=== PATIENT | female | born 1995 | race Two or more races ===

== ENCOUNTER 2021-09-10 09:25 | Outpatient (CLI) | payer OTHER | END 2021-09-10 09:33 | disposition home or self-care (01) | LOC: RX STUDY 09:25 | PROVIDERS: ATTEND Obstetrics & Gynecology | DX: R10.2 Pelvic and perineal pain (principal); N91.2 Amenorrhea, unspecified ==

== ENCOUNTER 2022-04-05 05:03 | Day surgery (SDC) | payer OTHER | END 2022-04-05 14:35 | disposition home or self-care (01) | LOC: CIR.AMB 05:03 | PROVIDERS: ATTEND Obstetrics & Gynecology | DX: N84.0 Polyp of corpus uteri (principal); Z20.822 Contact with and (suspected) exposure to COVID-19; Z91.013 Allergy to seafood; J45.909 Unspecified asthma, uncomplicated ==

== ENCOUNTER 2022-05-14 18:06 | Emergency (ER) | payer OTHER ==
[~2022-05-14] VITALS: Ht 170.2 cm; Wt 56.7 kg
== END 2022-05-14 21:33 | disposition home or self-care (01) ==
LOC: ER 18:06
DX: O20.9 Hemorrhage in early pregnancy, unspecified (principal); Z3A.01 Less than 8 weeks gestation of pregnancy; Z91.013 Allergy to seafood

== ENCOUNTER 2022-07-09 11:45 | Emergency (ER) | payer OTHER ==
[~2022-07-09] VITALS: Ht 170.2 cm; Wt 57.6 kg
== END 2022-07-09 20:01 | disposition home or self-care (01) ==
LOC: ER 11:45
DX: O46.91 Antepartum hemorrhage, unspecified, first trimester (principal); Z3A.12 12 weeks gestation of pregnancy

== ENCOUNTER 2022-08-18 12:01 | Emergency (ER) | payer OTHER ==
[~2022-08-18] VITALS: Ht 170.2 cm; Wt 59.4 kg
== END 2022-08-18 14:58 | disposition home or self-care (01) ==
LOC: ER 12:01
DX: O26.892 Other specified pregnancy related conditions, second trimester (principal); Z3A.18 18 weeks gestation of pregnancy; M54.2 Cervicalgia; Z91.013 Allergy to seafood

== ENCOUNTER 2022-09-01 13:16 | Outpatient (CLI) | payer OTHER | END 2022-09-01 14:50 | disposition home or self-care (01) | LOC: PRENATAL 13:16 | PROVIDERS: ATTEND Obstetrics & Gynecology Maternal & Fetal Medicine | DX: O35.9XX0 Maternal care for (suspected) fetal abnormality and damage, unspecified, not applicable or unspecified (principal); O35.3XX0 Maternal care for (suspected) damage to fetus from viral disease in mother, not applicable or unspecified; Z14.8 Genetic carrier of other disease; O26.839 Pregnancy related renal disease, unspecified trimester; O44.00 Complete placenta previa NOS or without hemorrhage, unspecified trimester; Z3A.20 20 weeks gestation of pregnancy ==

== ENCOUNTER 2022-09-08 14:33 | Inpatient (IN) | payer OTHER ==
[~2022-09-08] VITALS: Ht 170.2 cm; Wt 61.2 kg
[2022-09-08] MEDS ORDERED: PRENATAL TABLE1 EAC1 PO (15:04)
== END 2022-09-10 11:54 | disposition home or self-care (01) | DRG 805 ==
LOC: OBS/DEL 14:33 → LDR 19:01 → OBS/DEL 19:01 → LDR 09-09 15:49 → OB/GYN 09-10 02:13
PROVIDERS: ADMIT Obstetrics & Gynecology; ATTEND Obstetrics & Gynecology
PROC: 4A1HXCZ Monitoring of Products of Conception, Cardiac Rate, External Approach (ICD-10-PCS; 2022-09-08)
PROC: BY4CZZZ Ultrasonography of Second Trimester, Single Fetus (ICD-10-PCS; 2022-09-08)
PROC: BU4CZZZ Ultrasonography of Uterus and Ovaries (ICD-10-PCS; 2022-09-08)
PROC: 10E0XZZ Delivery of Products of Conception, External Approach (ICD-10-PCS; principal; 2022-09-09)
PROC: BY4CZZZ Ultrasonography of Second Trimester, Single Fetus (ICD-10-PCS; 2022-09-09)
PROC: BU4CZZZ Ultrasonography of Uterus and Ovaries (ICD-10-PCS; 2022-09-09)
PROC: 3E0P7VZ Introduction of Hormone into Female Reproductive, Via Natural or Artificial Opening (ICD-10-PCS; 2022-09-09)
PROC: 3E0DXGC Introduction of Other Therapeutic Substance into Mouth and Pharynx, External Approach (ICD-10-PCS; 2022-09-09)
DX: O32.1XX0 Maternal care for breech presentation, not applicable or unspecified (principal); O34.32 Maternal care for cervical incompetence, second trimester; Z37.1 Single stillbirth; O26.872 Cervical shortening, second trimester; O26.842 Uterine size-date discrepancy, second trimester; Z3A.21 21 weeks gestation of pregnancy; Z20.822 Contact with and (suspected) exposure to COVID-19

== ENCOUNTER 2023-01-04 11:51 | Emergency (ER) | payer OTHER ==
[~2023-01-04] VITALS: Ht 170.2 cm; Wt 57.2 kg
[~2023-01-04 11:51] MED LIST: PRENATAL TABLE1 EAC1 PO
[2023-01-04] MEDS ORDERED: BUSPIRONE HCL7.5 MG (12:59)
== END 2023-01-04 14:31 | disposition home or self-care (01) ==
LOC: ER 11:51
DX: R51.9 Headache, unspecified (principal)

== ENCOUNTER 2023-03-27 15:47 | Emergency (ER) | payer OTHER ==
[~2023-03-27] VITALS: Ht 170.2 cm; Wt 55.8 kg
[~2023-03-27 15:47] MED LIST changes: +BUSPIRONE HCL7.5 MG
[2023-03-27] MEDS ORDERED: PROMETRIUM200 MG PO (16:34)
[2023-03-27 17:21] LABS: HEMATOCRIT 32.6 % (36.0-45.00); MEAN CELL VOLUME 81.3 fL (80.00-100.00); MEAN CORPUSCULAR HEMOGLOBIN 27.5 pg (27.00-32.0); MEAN CORPUSCULAR HGB CONC 33.8 g/dl (32.0-36.0); PLATELET COUNT 200 K/uL (150-450); RED BLOOD COUNT 4.01 M/uL (4.00-6.00); RED CELL DISTRIBUTION WIDTH 16.7 % (11.5-14.5)
[2023-03-27 17:41] LABS: CALCIUM 8.9 mg/dL (8.5-10.1); CREATININE SERUM 0.67 mg/dL (0.55-1.02); GFR 106.39; POTASSIUM 3.8 mEq/L (3.5-5.1)
[2023-03-27 19:38] LABS: PH,URINE 6.5 (5.0-8.0); URINE APPEARANCE Cloudy; URINE BILIRRUBIN Negative (NEGATIVE); URINE BLOOD Negative; URINE COLOR Yellow; URINE GLUCOSE Negative (NEGATIVE); URINE LEUKOCYTE Negative; URINE NITRATE Negative; URINE PROTEIN Negative (NEGATIVE)
[2023-03-27 19:44] LABS: URINE BACTERIA 2019.5 uL (0.0-1933); URINE RBC 56.1 uL (0.0-20.8); URINE WBC 8.8 uL (0.0-23.2)
[2023-03-27 20:08] LABS: URINE CRYSTALS MODERATE /HPF
== END 2023-03-27 22:02 | disposition home or self-care (01) ==
LOC: ER 15:47
PROVIDERS: Emergency Medicine
DX: O21.9 Vomiting of pregnancy, unspecified (principal); Z3A.09 9 weeks gestation of pregnancy

== ENCOUNTER 2023-04-11 08:51 | Outpatient (CLI) | payer OTHER ==
[~2023-04-11 08:51] MED LIST changes: +PROMETRIUM200 MG PO
== END 2023-04-11 08:52 | disposition home or self-care (01) ==
LOC: PRENATAL 08:51
PROVIDERS: ATTEND Obstetrics & Gynecology Maternal & Fetal Medicine
DX: O36.80X0 Pregnancy with inconclusive fetal viability, not applicable or unspecified (principal); Z36.82 Encounter for antenatal screening for nuchal translucency; Z36.9 Encounter for antenatal screening, unspecified; O34.30 Maternal care for cervical incompetence, unspecified trimester; Z3A.11 11 weeks gestation of pregnancy

== ENCOUNTER 2023-04-14 10:13 | Outpatient (CLI) | payer OTHER | END 2023-04-14 10:56 | disposition home or self-care (01) | LOC: PRENATAL 10:13 | PROVIDERS: ATTEND Obstetrics & Gynecology Maternal & Fetal Medicine | DX: O36.80X0 Pregnancy with inconclusive fetal viability, not applicable or unspecified (principal); O34.30 Maternal care for cervical incompetence, unspecified trimester; O26.859 Spotting complicating pregnancy, unspecified trimester; Z3A.11 11 weeks gestation of pregnancy ==

== ENCOUNTER 2023-04-26 09:38 | Day surgery (SDC) | payer OTHER ==
[2023-04-20 11:20] LABS: HEMATOCRIT 33.7 % (36.0-45.00); HEMOGLOBIN 11.4 g/dL (12.0-15.00); MEAN CELL VOLUME 81.5 fL (80.00-100.00); MEAN CORPUSCULAR HEMOGLOBIN 27.4 pg (27.00-32.0); MEAN CORPUSCULAR HGB CONC 33.7 g/dl (32.0-36.0); PLATELET COUNT 197 K/uL (150-450); RED BLOOD COUNT 4.14 M/uL (4.00-6.00); RED CELL DISTRIBUTION WIDTH 15.6 % (11.5-14.5)
[2023-04-20 11:26] LABS: INR 0.99; PARTIAL THROMBOPLASTIN TIME 29.1 SECONDS (22.0-34.0); PROTHROMBIN TIME 10.4 SECONDS (9.0-11.5)
[~2023-04-26 09:38] MED LIST changes: +FOLIC ACID0.8 M1 PO
== END 2023-04-26 20:30 | disposition home or self-care (01) ==
LOC: CIR.AMB 09:38
PROVIDERS: ATTEND Obstetrics & Gynecology Maternal & Fetal Medicine
DX: O34.31 Maternal care for cervical incompetence, first trimester (principal); Z3A.12 12 weeks gestation of pregnancy; Z91.013 Allergy to seafood; Z20.822 Contact with and (suspected) exposure to COVID-19

== ENCOUNTER 2023-05-18 21:54 | Emergency (ER) | payer OTHER ==
[~2023-05-18] VITALS: Ht 170.2 cm; Wt 56.7 kg
[2023-05-19 00:01] LABS: HEMATOCRIT 29.6 % (36.0-45.00); HEMOGLOBIN 10.3 g/dL (12.0-15.00); MEAN CELL VOLUME 82.7 fL (80.00-100.00); MEAN CORPUSCULAR HEMOGLOBIN 28.8 pg (27.00-32.0); MEAN CORPUSCULAR HGB CONC 34.9 g/dl (32.0-36.0); PLATELET COUNT 207 K/uL (150-450); RED BLOOD COUNT 3.59 M/uL (4.00-6.00); RED CELL DISTRIBUTION WIDTH 15.3 % (11.5-14.5)
[2023-05-19 00:20] LABS: INR 0.96; PARTIAL THROMBOPLASTIN TIME 28.4 SECONDS (22.0-34.0); PROTHROMBIN TIME 10.1 SECONDS (9.0-11.5)
[2023-05-19 00:21] LABS: CALCIUM 8.8 mg/dL (8.5-10.1); CREATININE SERUM 0.62 mg/dL (0.55-1.02); GFR 116.35; POTASSIUM 3.25 mEq/L (3.5-5.1)
[2023-05-19 02:51] LABS: PH,URINE 7.5 (5.0-8.0); URINE APPEARANCE Clear; URINE BILIRRUBIN Negative (NEGATIVE); URINE BLOOD Negative; URINE COLOR Yellow; URINE GLUCOSE Negative (NEGATIVE); URINE LEUKOCYTE Negative; URINE NITRATE Negative; URINE PROTEIN Negative (NEGATIVE); URINE UROBILINOGEN 0.2 E.U./dl
[2023-05-19 02:55] LABS: URINE BACTERIA 298.3 uL (0.0-1933); URINE EPITHELIAL CELLS 3.2 uL (0.0-38.8); URINE WBC 3.7 uL (0.0-23.2)
[2023-05-19 02:58] LABS: URINE RBC 1.1 uL (0.0-20.8)
== END 2023-05-19 05:46 ==
LOC: ER 21:55
PROVIDERS: General Practice
DX: O26.892 Other specified pregnancy related conditions, second trimester (principal); Z3A.16 16 weeks gestation of pregnancy; R10.2 Pelvic and perineal pain; Z91.013 Allergy to seafood

== ENCOUNTER 2023-05-19 13:34 | Outpatient (CLI) | payer OTHER | END 2023-05-19 13:35 | disposition home or self-care (01) | LOC: PRENATAL 13:34 | PROVIDERS: ATTEND Obstetrics & Gynecology Maternal & Fetal Medicine | DX: O26.849 Uterine size-date discrepancy, unspecified trimester (principal); O34.30 Maternal care for cervical incompetence, unspecified trimester; Z3A.16 16 weeks gestation of pregnancy ==

== ENCOUNTER 2023-06-16 09:17 | Outpatient (CLI) | payer OTHER | END 2023-06-16 09:18 | disposition home or self-care (01) | LOC: PRENATAL 09:17 | PROVIDERS: ATTEND Obstetrics & Gynecology Maternal & Fetal Medicine | DX: O35.3XX0 Maternal care for (suspected) damage to fetus from viral disease in mother, not applicable or unspecified (principal); O44.00 Complete placenta previa NOS or without hemorrhage, unspecified trimester; O34.30 Maternal care for cervical incompetence, unspecified trimester; Z3A.20 20 weeks gestation of pregnancy ==

== ENCOUNTER 2023-06-19 14:29 | Inpatient (IN) | payer OTHER ==
[~2023-06-19] VITALS: Ht 170.2 cm; Wt 59.0 kg
[2023-06-19] MEDS ORDERED: PRENA1 CHEW TA1.4 MG PO (14:32)
== END 2023-06-23 18:21 | disposition home or self-care (01) | DRG 831 ==
LOC: LDR 14:29 → OB/GYN 14:29
PROVIDERS: ADMIT Obstetrics & Gynecology; ATTEND Obstetrics & Gynecology
PROC: 4A1HXCZ Monitoring of Products of Conception, Cardiac Rate, External Approach (ICD-10-PCS; principal; 2023-06-19)
PROC: BY4CZZZ Ultrasonography of Second Trimester, Single Fetus (ICD-10-PCS; 2023-06-21)
PROC: BU4CZZZ Ultrasonography of Uterus and Ovaries (ICD-10-PCS; 2023-06-21)
DX: O23.42 Unspecified infection of urinary tract in pregnancy, second trimester (principal); O34.32 Maternal care for cervical incompetence, second trimester; Z3A.21 21 weeks gestation of pregnancy; Z20.822 Contact with and (suspected) exposure to COVID-19; O26.842 Uterine size-date discrepancy, second trimester

== ENCOUNTER 2023-07-07 11:53 | Outpatient (CLI) | payer OTHER ==
[~2023-07-07] VITALS: Ht 170.2 cm; Wt 60.3 kg
[~2023-07-07 11:53] MED LIST changes: +PRENA1 CHEW TA1.4 MG PO
[2023-07-07 13:53] LABS: PH,URINE 6.5 (5.0-8.0); URINE APPEARANCE Clear; URINE BILIRRUBIN Negative (NEGATIVE); URINE BLOOD Negative; URINE COLOR Yellow; URINE GLUCOSE Negative (NEGATIVE); URINE LEUKOCYTE Negative; URINE NITRATE Negative; URINE PROTEIN Negative (NEGATIVE)
[2023-07-07 13:55] LABS: URINE BACTERIA 1006.7 uL (0.0-1933); URINE EPITHELIAL CELLS 12.5 uL (0.0-38.8); URINE RBC 40.5 uL (0.0-20.8); URINE WBC 8.8 uL (0.0-23.2)
== END 2023-07-08 16:38 | disposition home or self-care (01) ==
LOC: OBS/DEL 11:53
PROVIDERS: ATTEND Obstetrics & Gynecology
DX: O60.02 Preterm labor without delivery, second trimester (principal); O34.32 Maternal care for cervical incompetence, second trimester; Z3A.23 23 weeks gestation of pregnancy; Z91.013 Allergy to seafood; O26.852 Spotting complicating pregnancy, second trimester; O26.842 Uterine size-date discrepancy, second trimester

== ENCOUNTER 2023-08-10 09:47 | Outpatient (CLI) | payer OTHER | END 2023-08-10 09:48 | disposition home or self-care (01) | LOC: PRENATAL 09:47 | PROVIDERS: ATTEND Obstetrics & Gynecology Maternal & Fetal Medicine | DX: O26.849 Uterine size-date discrepancy, unspecified trimester (principal); O34.30 Maternal care for cervical incompetence, unspecified trimester; Z3A.28 28 weeks gestation of pregnancy ==

== ENCOUNTER 2023-09-11 02:24 | Outpatient (CLI) | payer OTHER ==
[~2023-09-11] VITALS: Ht 170.2 cm; Wt 68.0 kg
[2023-09-11] MEDS ORDERED: TAMSULOSIN HCL 0.4 MG CAP PO SCH (10:43)
== END 2023-09-11 11:53 | disposition home or self-care (01) ==
LOC: OBS/DEL 02:24
PROVIDERS: ATTEND Obstetrics & Gynecology
DX: O34.33 Maternal care for cervical incompetence, third trimester (principal); O36.8130 Decreased fetal movements, third trimester, not applicable or unspecified; Z3A.32 32 weeks gestation of pregnancy

== ENCOUNTER → 2023-09-21 15:41 | Outpatient (CLI) | payer OTHER | END | disposition home or self-care (01) | LOC: PRENATAL 15:41 | PROVIDERS: ATTEND Obstetrics & Gynecology Maternal & Fetal Medicine | DX: O26.849 Uterine size-date discrepancy, unspecified trimester (principal); O99.019 Anemia complicating pregnancy, unspecified trimester; O36.8199 Decreased fetal movements, unspecified trimester, other fetus; Z3A.34 34 weeks gestation of pregnancy ==

== ENCOUNTER 2023-09-26 13:19 | Outpatient (CLI) | payer OTHER | END 2023-09-26 13:21 | disposition home or self-care (01) | LOC: PRENATAL 13:19 | PROVIDERS: ATTEND Obstetrics & Gynecology Maternal & Fetal Medicine | DX: Z76.1 Encounter for health supervision and care of foundling (principal) ==

== ENCOUNTER 2024-01-24 20:11 | Emergency (ER) | payer OTHER ==
[~2024-01-24] VITALS: Ht 170.2 cm; Wt 61.7 kg
[~2024-01-24 20:11] MED LIST changes: +MONISTAT 324 GM VAG; +PROFERRIN-FORT1 EACH
[2024-01-24] MEDS ORDERED: CITALOPRAM HBR20 MG PO (20:49)
[2024-01-24] MEDS ORDERED: BUSPIRONE HCL15 MG PO (20:49)
[2024-01-24] MEDS ORDERED: KETOROLAC TROMETHAMINE 60 MG VIAL IM ONE (21:30)
[2024-01-24 21:37] LABS: HEMATOCRIT 33.3 % (36.0-45.00); HEMOGLOBIN 11.3 g/dL (12.0-15.00); MEAN CELL VOLUME 81.4 fL (80.00-100.00); MEAN CORPUSCULAR HEMOGLOBIN 27.6 pg (27.00-32.0); MEAN CORPUSCULAR HGB CONC 33.9 g/dl (32.0-36.0); PLATELET COUNT 206 K/uL (150-450); RED BLOOD COUNT 4.09 M/uL (4.00-6.00)
[2024-01-24 22:06] LABS: PH,URINE 6.5 (5.0-8.0); URINE APPEARANCE Cloudy; URINE BACTERIA 377.7 uL (0.0-1933); URINE BILIRRUBIN Negative (NEGATIVE); URINE BLOOD Negative; URINE COLOR Yellow; URINE EPITHELIAL CELLS 8.9 uL (0.0-38.8); URINE GLUCOSE Negative (NEGATIVE); URINE KETONE Negative (NEGATIVE); URINE LEUKOCYTE Negative; URINE NITRATE Negative; URINE PROTEIN Negative (NEGATIVE); URINE RBC 4.1 uL (0.0-20.8); URINE UROBILINOGEN 0.2 E.U./dl
[2024-01-24 22:10] LABS: URINE WBC 1.2 uL (0.0-23.2)
[2024-01-24] MEDS ORDERED: BACTRIM DS TAB1 EACH PO (23:28)
[2024-01-24] MEDS ORDERED: CEFTRIAXONE SODIUM 2,000 MG VIAL IM ONE (23:30)
== END 2024-01-24 23:41 | disposition home or self-care (01) ==
LOC: ER 20:12
PROVIDERS: General Practice
DX: N73.0 Acute parametritis and pelvic cellulitis (principal); R10.2 Pelvic and perineal pain; Z91.013 Allergy to seafood

== ENCOUNTER 2024-03-03 21:11 | Emergency (ER) | payer OTHER ==
[~2024-03-03] VITALS: Ht 170.2 cm; Wt 63.5 kg
[~2024-03-03 21:11] MED LIST changes: +BACTRIM DS TAB1 EACH PO; +BUSPIRONE HCL15 MG PO; +CITALOPRAM HBR20 MG PO
[2024-03-03] MEDS ORDERED: FOLIC ACID20 MG (21:39)
[2024-03-04 00:28] LABS: HEMATOCRIT 33.3 % (36.0-45.00); HEMOGLOBIN 11.1 g/dL (12.0-15.00); MEAN CELL VOLUME 83.5 fL (80.00-100.00); MEAN CORPUSCULAR HEMOGLOBIN 27.9 pg (27.00-32.0); MEAN CORPUSCULAR HGB CONC 33.4 g/dl (32.0-36.0); PLATELET COUNT 234 K/uL (150-450); RED BLOOD COUNT 3.99 M/uL (4.00-6.00); RED CELL DISTRIBUTION WIDTH 14.6 % (11.5-14.5)
[2024-03-04 00:49] LABS: PARTIAL THROMBOPLASTIN TIME 32.4 SECONDS (22.0-34.0); PROTHROMBIN TIME 10.9 SECONDS (9.0-11.5)
[2024-03-04 00:56] LABS: URINE APPEARANCE Clear; URINE BILIRRUBIN Negative (NEGATIVE); URINE BLOOD Negative; URINE COLOR Yellow; URINE GLUCOSE Negative (NEGATIVE); URINE KETONE Negative (NEGATIVE); URINE LEUKOCYTE Negative; URINE NITRATE Negative; URINE PROTEIN Negative (NEGATIVE); URINE UROBILINOGEN 0.2 E.U./dl
[2024-03-04 00:59] LABS: URINE EPITHELIAL CELLS 6.3 uL (0.0-38.8); URINE WBC 2.4 uL (0.0-23.2)
[2024-03-04 01:18] LABS: URINE RBC 0.1 uL (0.0-20.8)
[2024-03-04 02:05] LABS: BILIRUBIN TOTAL 0.21 mg/dL (0.3-1.2); CREATININE SERUM 0.86 mg/dL (0.55-1.02); GFR 79.15; GLOBULINA 3.7 G/DL (2.4-3.5); POTASSIUM 3.86 mEq/L (3.5-5.1); TOTAL PROTEIN 7.7 gm/dL (6.4-8.2)
== END 2024-03-04 02:28 | disposition home or self-care (01) ==
LOC: ER 21:12
PROVIDERS: General Practice
DX: O26.891 Other specified pregnancy related conditions, first trimester (principal); R10.2 Pelvic and perineal pain; Z3A.01 Less than 8 weeks gestation of pregnancy; Z91.013 Allergy to seafood

== ENCOUNTER 2024-03-20 20:46 | Emergency (ER) | payer OTHER ==
[~2024-03-20] VITALS: Ht 170.2 cm; Wt 63.5 kg
[~2024-03-20 20:46] MED LIST changes: +FOLIC ACID20 MG
[2024-03-20] MEDS ORDERED: ONDANSETRON HCL 2 MG/ML VIAL IV ONE (21:45)
[2024-03-20] MEDS ORDERED: 0.9 % SODIUM CHLORIDE 1,000 ML IV ONE (21:45)
[2024-03-20] MEDS ORDERED: FAMOtidine 10 MG/ML (4ML VIAL) IV ONE (21:45)
[2024-03-20 22:36] LABS: HEMATOCRIT 34.7 % (36.0-45.00); HEMOGLOBIN 11.8 g/dL (12.0-15.00); MEAN CELL VOLUME 83.1 fL (80.00-100.00); MEAN CORPUSCULAR HEMOGLOBIN 28.3 pg (27.00-32.0); PLATELET COUNT 236 K/uL (150-450); RED BLOOD COUNT 4.17 M/uL (4.00-6.00); RED CELL DISTRIBUTION WIDTH 14.2 % (11.5-14.5)
[2024-03-20 23:11] LABS: ALBUMIN 3.9 gm/dL (3.4-5.0); BILIRUBIN TOTAL 0.28 mg/dL (0.3-1.2); CALCIUM 8.9 mg/dL (8.5-10.1); CREATININE SERUM 0.61 mg/dL (0.55-1.02); GFR 117.65; GLOBULINA 3.6 G/DL (2.4-3.5); POTASSIUM 3.69 mEq/L (3.5-5.1); TOTAL PROTEIN 7.5 gm/dL (6.4-8.2)
[2024-03-20 23:13] LABS: URINE APPEARANCE Clear; URINE BILIRRUBIN Negative (NEGATIVE); URINE BLOOD Negative; URINE COLOR Yellow; URINE GLUCOSE Negative (NEGATIVE); URINE KETONE Negative (NEGATIVE); URINE LEUKOCYTE Negative; URINE NITRATE Negative; URINE PROTEIN Negative (NEGATIVE); URINE UROBILINOGEN 0.2 E.U./dl
[2024-03-20 23:18] LABS: URINE BACTERIA 1041.8 uL (0.0-1933); URINE EPITHELIAL CELLS 74.9 uL (0.0-38.8); URINE RBC 10.2 uL (0.0-20.8); URINE WBC 5.1 uL (0.0-23.2)
[2024-03-21] MEDS ORDERED: ONDANSETRON ODT4 MG PO (02:43)
[2024-03-21] MEDS ORDERED: PEPCID40 MG PO (02:43)
== END 2024-03-21 02:55 ==
LOC: ER 20:48
PROVIDERS: General Practice
DX: O21.9 Vomiting of pregnancy, unspecified (principal); Z3A.01 Less than 8 weeks gestation of pregnancy; Z91.013 Allergy to seafood
CPT/HCPCS: 36415; 76700; 76817; 96365; 99284; J2405; J3490; J7030

== ENCOUNTER 2024-05-01 09:35 | Emergency (ER) | payer OTHER ==
[~2024-05-01] VITALS: Ht 170.2 cm; Wt 63.0 kg
[~2024-05-01 09:35] MED LIST changes: +ONDANSETRON ODT4 MG PO; +PEPCID40 MG PO
[2024-05-01] MEDS ORDERED: OSEL75CA (10:14)
[2024-05-01 13:31] LABS: PH,URINE 6.5 (5.0-8.0); URINE APPEARANCE Cloudy; URINE BILIRRUBIN Negative (NEGATIVE); URINE BLOOD Negative; URINE COLOR Yellow; URINE GLUCOSE Negative (NEGATIVE); URINE KETONE 15 (NEGATIVE); URINE LEUKOCYTE Trace; URINE NITRATE Negative; URINE PROTEIN Trace (NEGATIVE); URINE UROBILINOGEN 0.2 E.U./dl
[2024-05-01 13:35] LABS: URINE BACTERIA 1907.6 uL (0.0-1933); URINE EPITHELIAL CELLS 69.5 uL (0.0-38.8); URINE WBC 30.1 uL (0.0-23.2)
[2024-05-01 13:48] LABS: URINE CAST 0.61 uL (0.0-1.40)
[2024-05-01 13:49] LABS: URINE CRYSTALS FEW /HPF
[2024-05-01 13:51] LABS: HEMATOCRIT 34.3 % (36.0-45.00); HEMOGLOBIN 11.7 g/dL (12.0-15.00); MEAN CELL VOLUME 83.5 fL (80.00-100.00); MEAN CORPUSCULAR HEMOGLOBIN 28.4 pg (27.00-32.0); MEAN CORPUSCULAR HGB CONC 34.1 g/dl (32.0-36.0); PLATELET COUNT 188 K/uL (150-450); RED BLOOD COUNT 4.11 M/uL (4.00-6.00); RED CELL DISTRIBUTION WIDTH 14.9 % (11.5-14.5)
[2024-05-01 14:17] LABS: ALBUMIN 3.6 gm/dL (3.4-5.0); BILIRUBIN TOTAL 0.27 mg/dL (0.3-1.2); CALCIUM 9.4 mg/dL (8.5-10.1); CREATININE SERUM 0.55 mg/dL (0.55-1.02); GFR 132.59; GLOBULINA 3.8 G/DL (2.4-3.5); POTASSIUM 3.71 mEq/L (3.5-5.1); TOTAL PROTEIN 7.4 gm/dL (6.4-8.2)
== END 2024-05-01 15:24 | disposition home or self-care (01) ==
LOC: ER 09:37
PROVIDERS: General Practice
DX: O99.511 Diseases of the respiratory system complicating pregnancy, first trimester (principal); J06.9 Acute upper respiratory infection, unspecified; Z3A.13 13 weeks gestation of pregnancy; Z91.013 Allergy to seafood; Z20.822 Contact with and (suspected) exposure to COVID-19

== ENCOUNTER 2024-05-13 13:02 | Emergency (ER) | payer OTHER ==
[~2024-05-13] VITALS: Ht 170.2 cm; Wt 62.1 kg
[~2024-05-13 13:02] MED LIST changes: +OSEL75CA
[2024-05-13] MEDS ORDERED: PRENA1 CHEW TA1.4 MG (13:17)
[2024-05-13 14:10] LABS: HEMATOCRIT 32.2 % (36.0-45.00); MEAN CORPUSCULAR HEMOGLOBIN 28.4 pg (27.00-32.0); MEAN CORPUSCULAR HGB CONC 34.2 g/dl (32.0-36.0); PLATELET COUNT 225 K/uL (150-450); RED BLOOD COUNT 3.88 M/uL (4.00-6.00); RED CELL DISTRIBUTION WIDTH 14.6 % (11.5-14.5)
[2024-05-13 14:30] LABS: URINE APPEARANCE Turbid; URINE BILIRRUBIN Negative (NEGATIVE); URINE BLOOD Negative; URINE COLOR Yellow; URINE GLUCOSE Negative (NEGATIVE); URINE KETONE Negative (NEGATIVE); URINE LEUKOCYTE Trace; URINE NITRATE Negative; URINE PROTEIN Negative (NEGATIVE)
[2024-05-13 14:33] LABS: URINE BACTERIA 1804.3 uL (0.0-1933); URINE EPITHELIAL CELLS 37.2 uL (0.0-38.8); URINE RBC 8.7 uL (0.0-20.8); URINE WBC 36.9 uL (0.0-23.2)
[2024-05-13 15:06] LABS: CALCIUM 8.9 mg/dL (8.5-10.1); CREATININE SERUM 0.55 mg/dL (0.55-1.02); GFR 132.59; POTASSIUM 3.85 mEq/L (3.5-5.1)
== END 2024-05-13 17:31 | disposition home or self-care (01) ==
LOC: ER 13:04
PROVIDERS: General Practice
DX: O26.892 Other specified pregnancy related conditions, second trimester (principal); R10.2 Pelvic and perineal pain; Z3A.15 15 weeks gestation of pregnancy; Z91.013 Allergy to seafood

== ENCOUNTER → 2024-05-22 | Day surgery (SDC) | payer OTHER ==
[2024-05-16 08:23] LABS: HEMATOCRIT 33.7 % (36.0-45.00); HEMOGLOBIN 11.7 g/dL (12.0-15.00); MEAN CELL VOLUME 83.1 fL (80.00-100.00); MEAN CORPUSCULAR HGB CONC 34.9 g/dl (32.0-36.0); PLATELET COUNT 216 K/uL (150-450); RED BLOOD COUNT 4.05 M/uL (4.00-6.00); RED CELL DISTRIBUTION WIDTH 15.3 % (11.5-14.5)
[2024-05-16 08:49] LABS: INR 0.97; PARTIAL THROMBOPLASTIN TIME 29.1 SECONDS (22.0-34.0); PROTHROMBIN TIME 10.6 SECONDS (9.0-11.5)
[2024-05-16 09:40] LABS: RH POSITIVE
[~2024-05-22] MED LIST changes: +METRONIDAZOLE/SODIUM CHLORIDE 500 MG/100 ML PIGGYBACK IV ONE; +MORPHINE SULFATE 4 MG/ML VIAL IV ONE; +PRENA1 CHEW TA1.4 MG
== END | disposition home or self-care (01) ==
LOC: ADM 05-16 07:00 → CIR.AMB 07:00
PROVIDERS: ATTEND Obstetrics & Gynecology Maternal & Fetal Medicine
DX: O34.32 Maternal care for cervical incompetence, second trimester (principal); Z3A.16 16 weeks gestation of pregnancy; Z91.013 Allergy to seafood

== ENCOUNTER 2024-06-14 09:13 | Outpatient (CLI) | payer OTHER ==
[~2024-06-14 09:13] MED LIST changes: -METRONIDAZOLE/SODIUM CHLORIDE 500 MG/100 ML PIGGYBACK IV ONE; -MORPHINE SULFATE 4 MG/ML VIAL IV ONE
== END 2024-06-14 09:14 | disposition home or self-care (01) ==
LOC: PRENATAL 09:13
PROVIDERS: ATTEND Obstetrics & Gynecology Maternal & Fetal Medicine
DX: O44.00 Complete placenta previa NOS or without hemorrhage, unspecified trimester (principal); O34.30 Maternal care for cervical incompetence, unspecified trimester; Z3A.20 20 weeks gestation of pregnancy

== ENCOUNTER 2024-06-23 00:13 | Outpatient (CLI) | payer OTHER ==
[2024-06-22 23:32] VITALS: BP 104/63
[2024-06-23] MEDS ORDERED: TERBUTALINE SULFATE 1 MG/ML AMPUL SUBCUTANEO ONE (00:30)
[2024-06-23] MEDS ORDERED: RINGERS SOLUTION,LACTATED 1,000 ML IV SCH (00:30)
[2024-06-23 01:05] LABS: URINE APPEARANCE Clear; URINE BILIRRUBIN Negative (NEGATIVE); URINE BLOOD Negative; URINE COLOR Yellow; URINE GLUCOSE Negative (NEGATIVE); URINE KETONE Negative (NEGATIVE); URINE LEUKOCYTE Negative; URINE NITRATE Negative; URINE PROTEIN Negative (NEGATIVE); URINE UROBILINOGEN 0.2 E.U./dl
[2024-06-23 01:06] LABS: MEAN CELL VOLUME 84.9 fL (80.00-100.00); MEAN CORPUSCULAR HEMOGLOBIN 29.3 pg (27.00-32.0); MEAN CORPUSCULAR HGB CONC 34.5 g/dl (32.0-36.0); PLATELET COUNT 207 K/uL (150-450); RED BLOOD COUNT 3.77 M/uL (4.00-6.00)
[2024-06-23 01:11] LABS: URINE EPITHELIAL CELLS 48.7 uL (0.0-38.8); URINE RBC 6.1 uL (0.0-20.8); URINE WBC 9.8 uL (0.0-23.2)
[2024-06-23 01:15] LABS: URINE CAST 0.29 uL (0.0-1.40)
[2024-06-23 03:27] VITALS: BP 95/57; O2SAT 99
[2024-06-23 07:43] VITALS: BP 98/58
[2024-06-23] MEDS ORDERED: AMPICILLIN TRI500 MG PO (07:45)
[2024-06-23] MEDS ORDERED: AMPICILLIN SODIUM 2,000 MG VIAL IV STA (07:46)
[2024-06-23 09:44] VITALS: BP 98/58
== END 2024-06-23 09:44 | disposition home or self-care (01) ==
LOC: OBS/DEL 00:13
PROVIDERS: Specialist; ATTEND Obstetrics & Gynecology
DX: Z34.82 Encounter for supervision of other normal pregnancy, second trimester (principal)

== ENCOUNTER 2024-07-05 17:06 | Outpatient (CLI) | payer OTHER ==
[~2024-07-05] VITALS: Ht 170.2 cm; Wt 64.9 kg
[2024-07-05 16:08] VITALS: BP 99/62
[~2024-07-05 17:06] MED LIST changes: +AMPICILLIN TRI500 MG PO
[2024-07-05] MEDS ORDERED: RINGERS SOLUTION,LACTATED 1,000 ML IV SCH (17:15)
[2024-07-05 18:50] LABS: HEMATOCRIT 31.7 % (36.0-45.00); HEMOGLOBIN 10.8 g/dL (12.0-15.00); MEAN CELL VOLUME 86.2 fL (80.00-100.00); MEAN CORPUSCULAR HEMOGLOBIN 29.2 pg (27.00-32.0); MEAN CORPUSCULAR HGB CONC 33.9 g/dl (32.0-36.0); PLATELET COUNT 207 K/uL (150-450); RED BLOOD COUNT 3.69 M/uL (4.00-6.00); RED CELL DISTRIBUTION WIDTH 14.8 % (11.5-14.5)
[2024-07-05 18:52] LABS: URINE APPEARANCE Clear; URINE BACTERIA 1262.9 uL (0.0-1933); URINE BILIRRUBIN Negative (NEGATIVE); URINE BLOOD Negative; URINE COLOR Yellow; URINE EPITHELIAL CELLS 146.4 uL (0.0-38.8); URINE GLUCOSE Negative (NEGATIVE); URINE KETONE Negative (NEGATIVE); URINE LEUKOCYTE Trace; URINE NITRATE Negative; URINE PROTEIN Negative (NEGATIVE); URINE RBC 4.4 uL (0.0-20.8); URINE UROBILINOGEN 0.2 E.U./dl; URINE WBC 17.4 uL (0.0-23.2)
[2024-07-05 19:19] LABS: URINE CAST 0.29 uL (0.0-1.40)
[2024-07-05 19:20] LABS: URINE EPITHELIAL CELLS 0-4 /HPF
[2024-07-05 20:02] VITALS: BP 99/60
[2024-07-05 23:18] VITALS: BP 100/63
[2024-07-06 03:14] VITALS: BP 100/58
[2024-07-06 06:07] VITALS: BP 96/55; O2SAT 100
[2024-07-06 08:42] VITALS: BP 100/58
== END 2024-07-06 09:06 | disposition home or self-care (01) ==
LOC: OBS/DEL 17:06
PROVIDERS: ATTEND Obstetrics & Gynecology
DX: O26.892 Other specified pregnancy related conditions, second trimester (principal); Z3A.22 22 weeks gestation of pregnancy

== ENCOUNTER 2024-08-09 15:01 | Outpatient (CLI) | payer OTHER | END 2024-08-09 15:04 | disposition home or self-care (01) | LOC: PRENATAL 15:01 | PROVIDERS: ATTEND Obstetrics & Gynecology Maternal & Fetal Medicine | DX: O26.849 Uterine size-date discrepancy, unspecified trimester (principal); O36.8199 Decreased fetal movements, unspecified trimester, other fetus; O34.219 Maternal care for unspecified type scar from previous cesarean delivery; O34.30 Maternal care for cervical incompetence, unspecified trimester; Z3A.28 28 weeks gestation of pregnancy ==

== ENCOUNTER 2024-09-20 14:31 | Outpatient (CLI) | payer OTHER | END 2024-09-20 14:32 | disposition home or self-care (01) | LOC: PRENATAL 14:31 | PROVIDERS: ATTEND Obstetrics & Gynecology Maternal & Fetal Medicine | DX: O26.849 Uterine size-date discrepancy, unspecified trimester (principal); O36.8199 Decreased fetal movements, unspecified trimester, other fetus; O34.219 Maternal care for unspecified type scar from previous cesarean delivery; O34.30 Maternal care for cervical incompetence, unspecified trimester; Z3A.33 33 weeks gestation of pregnancy ==

== ENCOUNTER 2025-01-25 07:07 | Outpatient (CLI) | payer OTHER | END 2025-01-25 07:14 | disposition home or self-care (01) | LOC: SONOGRAMA 07:07 | DX: R10.2 Pelvic and perineal pain (principal); Z98.890 Other specified postprocedural states ==

== ENCOUNTER 2025-02-19 13:42 | Outpatient (CLI) | payer OTHER | END 2025-02-19 13:45 | disposition home or self-care (01) | LOC: SONOGRAMA 13:42 | PROVIDERS: ATTEND Internal Medicine Gastroenterology | DX: R10.11 Right upper quadrant pain (principal) ==

== ENCOUNTER 2025-03-07 10:16 | Outpatient (CLI) | payer OTHER | END 2025-03-07 10:18 | disposition home or self-care (01) | LOC: TOM 10:16 | PROVIDERS: ATTEND Obstetrics & Gynecology | DX: R10.2 Pelvic and perineal pain (principal); R10.9 Unspecified abdominal pain ==

== ENCOUNTER 2025-03-18 12:27 | Outpatient (CLI) | payer OTHER | END 2025-03-18 12:31 | disposition home or self-care (01) | LOC: SONOGRAMA 12:27 | PROVIDERS: ATTEND Obstetrics & Gynecology | DX: R10.2 Pelvic and perineal pain (principal) ==

== ENCOUNTER → 2025-04-02 | Emergency (ER) | payer OTHER | END | disposition left against medical advice (07) | LOC: ER 15:05 | DX: Z53.21 Procedure and treatment not carried out due to patient leaving prior to being seen by health care provider (principal) ==

== ENCOUNTER 2025-04-28 12:21 | Emergency (ER) | payer OTHER ==
[~2025-04-28] VITALS: Ht 167.6 cm; Wt 68.9 kg
[2025-04-28] MEDS ORDERED: FAMOtidine 10 MG/ML (4ML VIAL) IV ONE (13:30)
[2025-04-28] MEDS ORDERED: ONDANSETRON HCL 2 MG/ML VIAL IV ONE (13:30)
[2025-04-28 15:31] LABS: BASO % 0.0 % (0.1-1.2); EOS # 0.01 (0.04-0.54); EOS % 0.2 % (0.7-7.0); LYMPH # 0.31 (1.18-3.74); LYMPH % 6.0 % (19.3-53.1); MEAN PLATELET VOLUME 10.80 fl (9.4-12.4); MONO # 0.34 (0.24-0.82); MONO % 6.6 % (4.7-12.5); NEUT # 4.46 (1.56-6.13); NEUT % 87.0 % (34.0-71.1); RED CELL DISTRIBUTION WIDTH 13.1 % (11.6-14.4)
[2025-04-28] MEDS ORDERED: 0.9 % SODIUM CHLORIDE 500 ML IV ONE (15:45)
[2025-04-28] MEDS ORDERED: FAMOTIDINE/PF 20 MG/2 ML VIAL ONE (15:57)
[2025-04-28] MEDS ORDERED: ONDANSETRON HCL 2 MG/ML VIAL ONE (15:57)
[2025-04-28 16:08] LABS: ALT/SGPT 24 U/L (12-78); AST/SGOT 14 U/L (15-37); BILIRUBIN TOTAL 0.96 mg/dL (0.3-1.2); BUN CREA RATIO 15 (7.0-25.0); CREATININE SERUM 0.73 mg/dL (0.55-1.02); GFR 94.93; GLOBULINA 3.7 G/DL (2.4-3.5); GLUCOSE FASTING 100 mg/dL (65-100); OSMOLALITY SERUM 281 MOSM/KG (275-295)
[2025-04-28 16:47] LABS: HCG QUANTITATIVE < 1 mUI/mL (1-3)
[2025-04-28] MEDS ORDERED: INTESTINEX680 M1 PO (18:39)
[2025-04-28] MEDS ORDERED: PEPCID AC20 MG PO (18:39)
[2025-04-28] MEDS ORDERED: ZOFRAN8 MG PO (18:39)
== END 2025-04-28 19:01 | disposition home or self-care (01) ==
LOC: ER 12:22
PROVIDERS: General Practice
DX: K52.9 Noninfective gastroenteritis and colitis, unspecified (principal); R11.2 Nausea with vomiting, unspecified; R11.10 Vomiting, unspecified; Z91.013 Allergy to seafood

== ENCOUNTER → 2025-04-29 | Outpatient (CLI) | payer OTHER ==
[~2025-04-29] MED LIST changes: +INTESTINEX680 M1 PO; +PEPCID AC20 MG PO; +ZOFRAN8 MG PO
== END | disposition home or self-care (01) ==
LOC: MRI 11:07
DX: N80.9 Endometriosis, unspecified (principal); N80.03 Adenomyosis of the uterus; R10.20 Pelvic and perineal pain unspecified side; N94.4 Primary dysmenorrhea
CPT/HCPCS: 72197

== ENCOUNTER 2025-06-07 08:35 | Outpatient (CLI) | payer OTHER | END 2025-06-07 08:40 | disposition home or self-care (01) | LOC: SONOGRAMA 08:35 | PROVIDERS: ATTEND Student in an Organized Health Care Education/Training Program | DX: N85.A Isthmocele (principal) ==

== ENCOUNTER 2025-06-18 10:49 | Outpatient (CLI) | payer OTHER | END 2025-06-18 10:57 | disposition home or self-care (01) | LOC: MAMO-SONO 10:49 | DX: N64.9 Disorder of breast, unspecified (principal); Z80.3 Family history of malignant neoplasm of breast; Z98.82 Breast implant status ==